=== PATIENT | male | born 1960 | race Caucasian/White ===

== ENCOUNTER 2018-11-02 13:04 | Emergency (ER) | payer OTHER, SELFPAY ==
--- NOTE | 2018-11-02 17:44 | W.ED.GENAD ---
Discharge Plan Discharge Details Primary Care Provider: None,None ED Provider: Danny Jimenez Home Meds and New Rx's Prescriptions: New tamsulosin [Flomax] 0.4 mg capsule 0.4 mg PO DAILY Qty: 7 RF: 0 acetaminophen [Mapap Extra Strength] 500 MG tablet 1,000 mg PO Q6H 5 Days Qty: 60 RF: 0 ibuprofen [Motrin IB] 200 MG tablet 600 mg PO Q6H 5 Days Qty: 60 RF: 0 ondansetron HCl [Zofran] 4 mg tablet 4 mg PO Q8H Qty: 7 RF: 0 HPI General Date/Time Provider Initiated Documentation: 11/02/18 17:44. HPI Narrative: At the time of patient's discharge the [place] registration team informed us that there was an error with the patient's initial registration and name. Please refer to this case number for full documentation and disposition. [id number] Related Data Home Medications Medication Instructions Recorded Confirmed acetaminophen [Mapap Extra 1,000 mg PO Q6H 5 Days #60 tab 11/02/18 Strength] ibuprofen [Motrin Ib] 600 mg PO Q6H 5 Days #60 tab 11/02/18 ondansetron HCl [Zofran] 4 mg PO Q8H #7 tab 11/02/18 tamsulosin [Flomax] 0.4 mg PO DAILY #7 cap 11/02/18 Previous Rx's Medication Instructions Recorded acetaminophen [Mapap Extra 1,000 mg PO Q6H 5 Days #60 tab 11/02/18 Strength] ibuprofen [Motrin Ib] 600 mg PO Q6H 5 Days #60 tab 11/02/18 ondansetron HCl [Zofran] 4 mg PO Q8H #7 tab 11/02/18 tamsulosin [Flomax] 0.4 mg PO DAILY #7 cap 11/02/18
== END 2018-11-02 18:00 ==
LOC: ER 15:42
PROVIDERS: Emergency Provider Student in an Organized Health Care Education/Training Program
DX: N13.2 Hydronephrosis with renal and ureteral calculous obstruction; R11.2 Nausea with vomiting, unspecified; E87.6 Hypokalemia; H91.93 Unspecified hearing loss, bilateral; I10 Essential (primary) hypertension
CPT/HCPCS: 36415; 93005; 96361; 96374; 96375; 96376; 99285; 93010